=== PATIENT | female | born 1960 | race Caucasian/White ===

== ENCOUNTER 2021-11-14 09:43 | Outpatient (CLI) | payer OTHER ==
--- NOTE | 2021-11-14 15:39 | DEXA Report ---
PROCEDURE: Dexa Spine and/or Hip INDICATIONS: OSTEOPORSIS TECHNIQUE: Dual energy x-ray absorptiometry (DXA) was performed on a [employer]. Regions measur ed are the AP Spine, femoral neck, and if needed forearm. COMPARISON: None. FINDINGS: Lumbar Spine: Bone Mineral Density 1.041 g/cm/cm,T score -1.2, minimal osteopenia Mild Hip: Bone Mineral Density 0.665 g/cm/cm,T score -2.7, mild osteoporosis Left Femoral Neck: Bone Mineral Density 0.652 g/cm/cm, T score -2.8, mild osteoporosis (T score greater or equal to -1.0: NORMAL) (T score from -1.1 to -2.4: OSTEOPENIA) (T score less than or equal to -2.5 to: OSTEOPOROSIS) Impression: Osteoporosis within the left hip and femoral neck with minimal osteopenia in the lumbar s pine. Patients with diagnosis of osteoporosis or osteopenia should have regular bone mineral density assess ment. For those eligible for Medicare, routine testing is allowed once every 2 years. Testing frequ ency can be increased for patients who have rapidly progressing disease or for those who are receivin g medical therapy to restore bone mass. Reviewed by: Alma Chaidez MD on 11/14/2021 3:38 PM PST Approved by: Alma Chaidez MD on 11/14/2021 3:38 PM PST Station ID: [id number]
== END 2021-11-14 09:44 | disposition home or self-care (01) ==
LOC: DI 09:43
PROVIDERS: ATTEND Internal Medicine
DX: M81.0 Age-related osteoporosis without current pathological fracture (principal)

== ENCOUNTER 2021-11-14 09:46 | Outpatient (CLI) | payer OTHER ==
--- NOTE | 2021-11-15 10:44 | Mammography Report ---
BILATERAL DIGITAL SCREENING MAMMOGRAM 3D/2D: 11/14/2021 CLINICAL: Routine screening. Comparison is made to exams dated: 04/30/2018 mammogram and 06/07/2014 mammogram - [facility]. The tissue of both breasts is heterogeneously dense. This may lower the sensitivi ty of mammography. No significant masses, calcifications, or other findings are seen in either breast. There has been no significant interval change. IMPRESSION: NEGATIVE There is no mammographic evidence of malignancy. A 1 year screening mammogram is recommended. This exam was interpreted at Station ID: [id number]. NOTE: For mammograms, a report in lay terms will be sent to the patient. Approximately 15% of breast malignancies will not be visualized mammographically. In the management of a palpable breast mass, a negative mammogram must not discourage biopsy of a clinically suspicious lesion. Electronically Signed By: Octavio [email or web address]:11/14/2021 15:08:53 ACR BI-RADS Category 1: Negative 3341F PARENCHYMAL PATTERN: (D) - The breast(s) demonstrate(s) heterogeneously dense fibroglandular hernando ramsay. BI-RADS CATEGORY: (1) - 1 RECOMMENDATION: (ANNUAL) - Recommend routine annual screening mammography. [id number] 1 year screening LATERALITY: (B)
== END 2021-11-14 09:47 | disposition home or self-care (01) ==
LOC: DI 09:46
PROVIDERS: ATTEND Family Medicine
DX: Z12.31 Encounter for screening mammogram for malignant neoplasm of breast (principal)